=== PATIENT | female | born 1995 | race Caucasian/White ===

== ENCOUNTER 2017-06-22 12:03 | Emergency (ER) | payer OTHER ==
[~2017-06-22] VITALS: Ht 157.5 cm; Wt 104.3 kg
[~2017-06-22 12:03] MED LIST: MOTRIN 600 MG600 MG PO; TRAMADOL50 MG PO; [UNRECOGNIZED DRUG - OTHER] TOP
[2017-06-22] MEDS ORDERED: PANTOPRAZOLE SO40 M1 PO (12:39)
[2017-06-22] MEDS ORDERED: PROAIR HFA8.5 GM INH (12:40)
--- NOTE | 2017-06-22 12:44 | ED UPPER/LOWER EXTREMITY COMPL ---
History of Present Illness General Chief Complaint: Lower Extremity Injury Stated Complaint: R KNEE PAIN Source: patient Exam Limitations: no limitations Vital Signs & Intake/Output Vital Signs & Intake/Output Vital Signs Date Time Temp Pulse Resp B/P B/P Pulse O2 O2 Flow FiO2 Mean Ox Delivery Rate 06/22 1440 97.7 95 17 138/86 98 Room Air 06/22 1210 97.9 94 18 122/74 99 Room Air Allergies Coded Allergies: NO KNOWN ALLERGIES (12/11/10) Reconcile Medications Albuterol Sulfate (Proair Hfa) 90 MCG HFA.AER.AD 2 PUF INH Q4-6 PRN PRN ASTHMA (Reported) Ibuprofen (Motrin 600 MG Tab) 600 MG TABLET 1 TAB PO Q6P PRN PAIN Meloxicam (Mobic) 15 MG TABLET 1 TAB PO DAILY PRN pain Pantoprazole Sodium 40 MG TABLET.DR 1 TAB PO DAILY ACID REFLUX (Reported) Triage Note: PT STATES THAT SHE HAS HISTORY OF R KNEE PAIN AND 2 WEEKS AGO SHE FELL AND THE PAIN IS NOT GETTING BETTER. PT DECLINES MEDS AT TRIAGE AND REQUEST XRAY. Triage Nurses Notes Reviewed? yes Onset: Gradual Duration: day(s): Timing: recent history Severity: severe Severity Numbers: 10 Pain/Injury Location: Right: Knee. Method of Injury: fall : No Patient currently breastfeeds: No HPI: 21yo female presents to ED complaining of pain in Right knee for the past 2 weeks. Patient states that 2 weeks ago she tripped and fell landing on her right leg. She is unsure of exactly what part of her knee she fell on. Patient states that she has had persistent pain in the right knee since her fall. Patient states that she is able to walk however we were gradually become achy when she walks on this leg. Patient reports pain is severe, 10/10. Patient denies repeat fall, numbness, tingling, bleeding. (Ana GAYTAN,Darlyn Grande) Past History Travel History Traveled to [place] past 21 day No Medical History Any Pertinent Medical History? 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 No (Darlyn Shaw) Review of Systems Review of Systems Constitutional: Reports: no symptoms. EENTM: Reports: no symptoms. Respiratory: Reports: no symptoms. Cardiovascular: Reports: no symptoms. Gastrointestinal/Abdominal: Reports: no symptoms. Genitourinary: Reports: no symptoms. Musculoskeletal: Reports: see HPI. Skin: Reports: no symptoms. Neurological/Psychological: Reports: no symptoms. Hematologic/Endocrine: Reports: no symptoms. Immunological: Reports: no symptoms. All Other Systems: Reviewed and Negative (Darlyn Shaw) Physical Exam Physical Exam General Appearance: well developed/nourished, no apparent distress, alert, awake Head: atraumatic, normal appearance Eyes: Bilateral: normal appearance. Ears, Nose, Throat: hearing grossly normal Neck: normal inspection, supple, full range of motion Cardiovascular/Respiratory: normal peripheral pulses, no respiratory distress Peripheral Pulses: 2+ dorsalis pedis (R) Back: normal inspection, normal range of motion Leg Left: normal range of motion, normal inspection Leg Right: normal range of motion, normal inspection, anterior tibia tendernes without swelling or deformity Hip Left: normal range of motion, normal inspection Hip Right: normal range of motion, normal inspection Knee Left: normal range of motion, normal inspection Knee Right: healing areas of ecchymosis to anterior knee and ordonez, medial knee tenderness, no gross swelling or deformity, ROM intact Knee Ligaments Right: no gross laxity with anterior/posterior drawer, varus/ valgus stress Foot Left: normal inspection, normal range of motion Foot Right: normal inspection, normal range of motion Neurologic/Tendon: normal sensation, normal motor functions, normal tendon functions Skin: intact, warm/dry, ecchymosis (Darlyn Shaw) Progress Differential Diagnosis: contusion, fracture, sprain, tendon injury Plan of Care: Orders Procedure Date/time Status URINE 06/22 1252 Complete URINALYSIS 06/22 1252 Complete Laboratory Tests 06/22/17 1305: Urine Color YEL, Urine Clarity CLEAR, Urine pH 5.5, Ur Specific [place] >= 1.030 , Urine Protein TRACE H, Urine Ketones NEG, Urine Nitrite NEG, Urine Bilirubin NEG, Urine Urobilinogen 0.2, Ur Leukocyte Esterase TRACE H, Ur Microscopic SEDIMENT EXAMINED, Urine RBC 1-3, Urine WBC 3-5 H, Ur Epithelial Cells MANY H, Urine Bacteria MOD H, Urine Hemoglobin TRACE-INTACT, Urine Glucose NEG, Urine Test NEGATIVE Xray shows small effusion however no bony abnormality. Patient given orthopedic referral. Right knee placed in Daniel bandage. Patient ambulatory here in the emergency Department without difficulty. She has intact distal pulses. Patient will follow-up with her primary care doctor as well. She will return with any worsening symptoms or concerns. The patient agrees with the plan of care. Diagnostic Imaging: Viewed by Me: Radiology Read. Discussed w/RAD: Radiology Read. Radiology Impression: PATIENT: DAVID YOUNG PRESENT AGE: 21 PATIENT ACCOUNT NO: [id number] : 93 LOCATION: [facility] ORDERING PHYSICIAN: Darlyn GAYTAN SERVICE DATE: 06/22/17-1252 EXAM TYPE: RAD - XRY-KNEE COMPLETE RIGHT; [id number], RIGHT EXAMINATION: XR TIBIA AND FIBULA, RIGHT XR KNEE, RIGHT CLINICAL INFORMATION: Prior fall with pain. Rule out fracture. COMPARISON: None TECHNIQUE: AP and lateral views of the right tibia and fibula were obtained. 4 views of the right knee obtained. FINDINGS: No fracture or dislocation is evident. The medial and lateral compartments of the knee joint spaces are normally maintained. No soft tissue abnormality is seen. There is a small suprapatellar joint effusion. The ankle mortise is intact. IMPRESSION: Small suprapatellar joint effusion. No acute osseous abnormality of the right knee or right leg. DICTATED BY: Evelio Galvez MD DATE/TIME DICTATED :06/22/171416 TALENT ACQUISITION RELATIONSHIP MANAGER:JOSSE DATE/TIME TRANSCRIBED:06/22/171416 CONFIDENTIAL, DO NOT COPY WITHOUT APPROPRIATE AUTHORIZATION. < Electronically signed in Other Vendor System> SIGNED BY: Evelio Galvez MD 06/22/17 4929 (Ana GAYTAN,Darlyn Grande) Departure Departure Disposition: HOME OR SELF CARE Condition: Stable Clinical Impression Primary Impression: Strain of knee and leg, right Qualifiers: Encounter type: initial encounter Qualified Code: S86.911A - Strain of unspecified muscle(s) and tendon(s) at lower leg level, right leg, initial encounter Secondary Impressions: Fall Qualifiers: Encounter type: initial encounter Qualified Code: W19.XXXA - Unspecified fall, initial encounter Joint effusion Referrals: Tangela Schulz MD (PCP/Family) Additional Instructions: Follow-up with orthopedic physician referred to today. Call the office to make an appointment. You may also follow-up with your primary care doctor, you may require further imaging such as an MRI. Rest, applu ice intermittently, elevate the right leg. Return with any worsening symptoms or concerns. Please note that there might be incidental findings in your evaluation that are unrelated to the current emergency department visit. Please notify your primary care doctor about this emergency department visit in order to obtain and review all of the testing performed so that these incidental findings can be monitored as needed. If you had an x-ray performed, please understand that some fractures may not be seen on the initial set of x-rays. If your symptoms persist you might need a repeat set of x-rays to check for such a fracture. If you had a laceration evaluated, please understand that foreign bodies such as glass or wood may not be visible to the naked eye or on plain x-rays. If the wound becomes red, swollen, increasingly more painful or if there is any drainage from the wound, please have it reevaluated by a physician for the possibility of a retained foreign body. If you're unable to follow up as outlined in the discharge instructions please return to the emergency department. Thank you for choosing the [facility] Emergency Department for your care. It was a pleasure to serve you today. Departure Forms: Customer Survey General Discharge Information Prescriptions: Current Visit Scripts Meloxicam (Mobic) 1 TAB PO DAILY PRN pain #15 TAB (Ana GAYTAN,Darlyn Grande) PA/PEDIATRIC NEPHROLOGIST Co-Sign Statement Statement: ED Attending supervision documentation- [] I saw and evaluated the patient. I have also reviewed all the pertinent lab results and diagnostic results. I agree with the findings and the plan of care as documented in the PA's/PEDIATRIC NEPHROLOGIST's documentation. [X] I have reviewed the ED Record and agree with the PA's/PEDIATRIC NEPHROLOGIST's documentation. [] Additions or exceptions (if any) to the PAs/PEDIATRIC NEPHROLOGIST's note and plan are summarized below: [] (Negin ROBBINS,Evelio Benjamin)
--- NOTE | 2017-06-22 14:22 | RADIOLOGY REPORT ---
EXAMINATION: XR TIBIA AND FIBULA, RIGHT XR KNEE, RIGHT CLINICAL INFORMATION: Prior fall with pain. Rule out fracture. COMPARISON: None TECHNIQUE: AP and lateral views of the right tibia and fibula were obtained. 4 views of the right knee obtained. FINDINGS: No fracture or dislocation is evident. The medial and lateral compartments of the knee joint spaces are normally maintained. No soft tissue abnormality is seen. There is a small suprapatellar joint effusion. The ankle mortise is intact. IMPRESSION: Small suprapatellar joint effusion. No acute osseous abnormality of the right knee or right leg.
[2017-06-22] MEDS ORDERED: MOBIC15 M1 PO (14:30)
[2017-06-22 14:40] VITALS: BP 138/86
== END 2017-06-22 14:36 ==
LOC: ERH 12:03
DX: S86.911A Strain of unspecified muscle(s) and tendon(s) at lower leg level, right leg, initial encounter (principal); W01.0XXA Fall on same level from slipping, tripping and stumbling without subsequent striking against object, initial encounter; Y93.9 Activity, unspecified; Y92.9 Unspecified place or not applicable
CPT/HCPCS: 73562-RT; 73590-RT; 81001; 81025